=== PATIENT | female | born 1980 | race Caucasian/White ===

== ENCOUNTER 2020-11-27 17:44 | Observation (INO) | payer BC ==
[~2020-11-27] VITALS: Ht 177.8 cm; Wt 81.8 kg
[2020-11-27 18:30] LABS: COLLECTION METHOD CLEAN CATCH
[2020-11-27 18:34] LABS: BASO # 0.1 (0.0-0.2); BASO % 0.5 % (0.0-2.0); EOS # 0.1 (0.0-0.7); EOS % 0.7 % (0-4.0); GRAN # 6.3 (1.4-6.5); GRAN % 62.1 % (42.2-75.2); HEMATOCRIT 43.4 % (37.0-47.0); LYMPH # 2.7 (1.2-3.4); LYMPH % 26.3 % (20.0-51.0); MEAN CELL VOLUME 86 fl (80.0-100.0); MEAN CORPUSCULAR HEMOGLOBIN 30 pg (27.0-31.0); MEAN CORPUSCULAR HGB CONC 35 g/dl (33.0-37.0); MEAN PLATELET VOLUME 10.9 fl (7.4-10.4); MONO % 10.1 % (1.7-9.3); PLATELET COUNT 210 K/mm3 (130-400); RED BLOOD COUNT 5.03 M/mm3 (4.10-5.30); REDCELL DISTRIBUTION WIDTH-CV 12.6 % (11.5-14.5)
[2020-11-27 18:37] LABS: PH 7 (5-8); SQUAMOUS EPITHELIAL 0-2 /hpf; URINE APPEARANCE Clear; URINE BACTERIA None Seen /hpf; URINE BILIRUBIN Negative (NEGATIVE); URINE BLOOD Negative (NEGATIVE); URINE COLOR Yellow; URINE GLUCOSE Negative (NEGATIVE); URINE KETONE Negative (NEGATIVE); URINE LEUKOCYTE ESTERASE Negative (NEGATIVE); URINE NITRATE Negative (NEGATIVE); URINE PROTEIN(semi-quant) Negative (NEGATIVE); URINE RBC 0-2 /hpf; URINE UROBILINOGEN Negative (NEGATIVE)
[2020-11-27 18:46] LABS: ALBUMIN 4.4 gm/dL (3.5-5.0); BILIRUBIN,TOTAL 0.5 mg/dL (0.0-1.0); C-REACTIVE PROTEIN 0.7 mg/dL (0.0-0.9); CALCIUM 9.3 mg/dL (8.4-10.2); CREATININE, serum 1.62 (0.52-1.25)
--- NOTE | 2020-11-27 21:56 | NUR ---
RECEIVED REPORT FROM ED RN RUBEN, AWAITING PATIENT'S ARRIVAL.
--- NOTE | 2020-11-27 22:11 | NUR ---
PATIENT ARRIVED TO ROOM 323 PER AMBULATION, ACCOMPANIED BY ED NURSE. PATIENT REQUESTING BROTH, UP AD VÍCTOR IN ROOM.
[2020-11-27] MEDS ORDERED: DUO-KAPS1 CAP PO (22:30)
[2020-11-27] MEDS ORDERED: PROBIOTIC FORMU1 CAP PO (22:31)
[2020-11-27 22:34] VITALS: BP 127/76; PULSE 57; TEMP 98.1
[2020-11-28] VITALS (10 sets, daily range): BP systolic 93–132; BP diastolic 59–80; PULSE 57–92; TEMP 97.5–98.3
[2020-11-28 07:20] LABS: BASO % 0.6 % (0.0-2.0); EOS # 0.1 (0.0-0.7); EOS % 1.6 % (0-4.0); GRAN # 3.2 (1.4-6.5); GRAN % 46.6 % (42.2-75.2); HEMATOCRIT 40.7 % (37.0-47.0); HEMOGLOBIN 13.8 g/dl (12.5-16.0); LYMPH # 2.9 (1.2-3.4); MEAN CELL VOLUME 89 fl (80.0-100.0); MEAN CORPUSCULAR HEMOGLOBIN 30 pg (27.0-31.0); MEAN CORPUSCULAR HGB CONC 34 g/dl (33.0-37.0); MEAN PLATELET VOLUME 11.4 fl (7.4-10.4); MONO # 0.6 (0.1-0.6); MONO % 9.1 % (1.7-9.3); PLATELET COUNT 195 K/mm3 (130-400); RED BLOOD COUNT 4.57 M/mm3 (4.10-5.30); REDCELL DISTRIBUTION WIDTH-CV 12.9 % (11.5-14.5)
[2020-11-28 07:27] LABS: INR 1.1 (0.8-3.0); PROTHROMBIN TIME 12.3 SECONDS (9.7-12.8)
[2020-11-28 07:34] LABS: ALBUMIN 3.7 gm/dL (3.5-5.0); BILIRUBIN,TOTAL 0.8 mg/dL (0.0-1.0); CALCIUM 8.2 mg/dL (8.4-10.2); CREATININE, serum 1.03 (0.52-1.25); POTASSIUM 3.7 mmol/L (3.4-5.0)
--- NOTE | 2020-11-28 08:36 | NUR ---
Patient sitting up in bed. rounded this am. Plan of care reviewed, plan for OR this afternoon. She remains NPO. Zofran for nausea. She requested a norco for a headache, rating pain her her abdomen 2/10. More concerns over her nausea. Patient plans on cleaning up before sugery in the am. Will continue to monitor.
--- NOTE | 2020-11-28 10:07 | NUR ---
First visit from the senior validation engineer. No needs right now.
[2020-11-28] MEDS ORDERED: IUD (14:18)
--- NOTE | 2020-11-28 15:17 | NUR ---
Patient to Or with Or staff. She was prepped for surgery. She showered with surgical scrub. Ring taped. Pepced was given per orders and LR to gravity. Consent obtained per orders. She continues to have headache, we belive it may be due to lack of caffiene. Will await her return
[2020-11-28] MEDS ORDERED: NORCO 325 MG-51 TAB PO (17:39)
[2020-11-28] MEDS ORDERED: MOTRIN 600600 MG/TAB PO (17:39)
[2020-11-28] MEDS ORDERED: AMOXICILLIN 8751 TAB PO (17:40)
[2020-11-28] MEDS ORDERED: [UNRECOGNIZED DRUG - REMARK] (17:49)
[2020-11-28] MEDS ORDERED: ZOFRAN ODT4 MG PO (17:56)
--- NOTE | 2020-11-28 18:51 | NUR ---
Patient post op. Received from Kim. Patient awake & alert. Vss on room air. Low fat dinner ordered. Lap site x4 edges well approximated. open to air. Bedside report to Leidy
--- NOTE | 2020-11-28 20:30 | NUR ---
PT HAS EATEN AND VOIDED, PAIN IS CONTROLLED. WANTS TO GO HOME. DC'D IV SITE FROM RT FOR[facility], ANGIOCATH INTACT. DISCHARGE INSTRUCTIONS REVIEWED WITH PT. HAS HOME MEDS PICKED UP.
--- NOTE | 2020-11-28 20:35 | NUR ---
DISCHARGED VIA AMBULATORY STATUS TO PRIVATE CAR. PERSONAL BELONGINGS SENT WITH PT WELL COPY OF DISCHARGE INSTRUCTIONS.
== END 2020-11-28 20:35 | disposition home or self-care (01) ==
LOC: COL.ER 17:44 → SURG 20:20
PROVIDERS: Nurse Practitioner; ADMIT Surgery
DX: K80.12 Calculus of gallbladder with acute and chronic cholecystitis without obstruction (principal); G89.29 Other chronic pain; M54.5 Low back pain; Z79.891 Long term (current) use of opiate analgesic; Z91.040 Latex allergy status; K21.9 Gastro-esophageal reflux disease without esophagitis; Z79.899 Other long term (current) drug therapy
CPT/HCPCS: A9284; G0378; J2250; J2405; J2543; J2704; J3010; J7030; J7120; Q9967